=== PATIENT | female | born 1970 | race Hispanic/Latino ===

== ENCOUNTER 2020-02-09 08:41 | Emergency (ER) | payer BC ==
[~2020-02-09] VITALS: Ht 157.5 cm; Wt 62.0 kg
[2020-02-09 09:27] LABS: IMMATURE GRANULOCYTES 0.3 % (0.0-5.0); MEAN CORPUSCULAR HGB 21.1 pG CALC (26.0-32.0); MEAN CORPUSCULAR HGB CONC 29.9 g/dL CAL (32.0-36.0); NEUT# 8.76 thou/uL (2.00-7.15); RED BLOOD COUNT 4.36 mill/uL (4.20-5.60)
[2020-02-09 09:34] LABS: URINE BILIRUBIN - DIPSTICK NEGATIVE (NEGATIVE); URINE BLOOD DIPSTICK NEGATIVE (NEGATIVE); URINE COLOR YELLOW; URINE GLUCOSE - DIPSTICK NEGATIVE (NEGATIVE); URINE KETONE NEGATIVE (NEGATIVE); URINE LEUK ESTERASE NEGATIVE (NEGATIVE); URINE NITRITE - DIPSTICK NEGATIVE (Negative); URINE PH 5.5 (4.5-8.0); URINE PROTEIN - DIPSTICK NEGATIVE (NEG-TRACE); URINE SPECIFIC GRAVITY 1.025; URINE UROBILINOGEN - DIPSTICK 0.2 E.U./dL (0.2)
[2020-02-09 09:43] LABS: HEMATOCRIT 30.8 % (37.0-47.0); HEMOGLOBIN 9.2 g/dl (12.0-16.0); MEAN CELL VOLUME 70.6 fL CALC (80.0-100.0)
[2020-02-09 09:56] LABS: ALBUMIN 4.1 g/dL (3.2-5.0); ANION GAP 12 (6-22 (CALC)); BILIRUBIN, TOTAL 0.7 mg/dL (0.0-1.4); BUN 10 mg/dL (7-17); BUN/CREATININE RATIO 15 (12-20 (CALC)); CARBON DIOXIDE 22 mmol/l (22-30); CHLORIDE 107 mmol/l (95-108); CREATININE 0.6 mg/dL (0.5-1.0); GFR > 60 ML/MIN (>=60 (CALC)); GFR FOR AFR.AMER. > 60 ML/MIN (>=60 (CALC)); POTASSIUM 4.3 mmol/l (3.5-5.1); SGOT/AST 20 u/l (14-36); SODIUM 137 mmol/l (137-146); TOTAL PROTEIN 7.7 g/dL (6.3-8.2)
[2020-02-09 09:57] LABS: ALKALINE PHOSPHATASE 91 u/l (38-126)
[2020-02-09] MEDS ORDERED: AMOX/K CLAV875 M1 PO (11:27)
[2020-02-09] MEDS ORDERED: ZOFRAN4 MG/TAB PO (11:27)
[2020-02-09] MEDS ORDERED: DICYCLOMINE20 MG PO (11:27)
[2020-02-09 11:38] VITALS: BP 147/90
== END 2020-02-09 11:48 | disposition home or self-care (01) | DRG 392 ==
LOC: ED 08:41
PROVIDERS: Student in an Organized Health Care Education/Training Program
DX: K57.32 Diverticulitis of large intestine without perforation or abscess without bleeding (principal); D25.9 Leiomyoma of uterus, unspecified
CPT/HCPCS: Q9967

== ENCOUNTER 2021-09-14 07:37 | Day surgery (SDC) | payer BC ==
[~2021-09-14] VITALS: Ht 157.5 cm; Wt 61.2 kg
[~2021-09-14 07:37] MED LIST: AMOX/K CLAV875 M1 PO; DICYCLOMINE20 MG PO; FOLIC ACI1 PO; METHOTREXATE S2.5 MG PO; ZOFRAN4 MG/TAB PO
[2021-09-14 10:18] VITALS: BP 123/84
== END 2021-09-14 10:09 | disposition home or self-care (01) | DRG 951 ==
LOC: ENDO 07:37
PROVIDERS: ATTEND Surgery
PROC: 0DJD8ZZ Inspection of Lower Intestinal Tract, Via Natural or Artificial Opening Endoscopic (ICD-10-PCS; principal; 2021-09-14)
DX: Z12.11 Encounter for screening for malignant neoplasm of colon (principal); K57.30 Diverticulosis of large intestine without perforation or abscess without bleeding; Z87.19 Personal history of other diseases of the digestive system